=== PATIENT | female | born 1955 | race Caucasian/White ===

== ENCOUNTER 2017-11-09 14:15 | Inpatient (IN) | payer MEDICARE, BC ==
[2017-11-09] MEDS ORDERED: Lidocaine 1% w/Epinephrine 1:100K 20 ML VIAL ONE (14:28)
[2017-11-09] MEDS ORDERED: Lidocaine 1% PF 5 ML VIAL ONE (14:38)
--- NOTE | 2017-11-09 16:06 | RAD ---
TWO VIEWS LEFT WRIST 11/09/17 HISTORY: Post reduction and splinting left wrist. COMPARISON: Views left forearm on 11/09/17. FINDINGS: The previously seen comminuted fracture involving the distal left radial metaphysis is again seen wi th apex volar angulation. Degree of angulation is stable from the prior study. Comminuted fracture in volving the distal ulna is also again seen. There is prominent subcutaneous soft tissue swelling at t he dorsal aspect of the wrist and distal forearm. Splint material now overlies the wrist. IMPRESSION: 1. Stable alignment of the comminuted fractures involving the distal left radius and ulna includ ing stable apex volar angulation. 2. Subcutaneous soft tissue swelling. POS: [facility]
[2017-11-09] MEDS ORDERED: diphenhydrAMINE 50 MG/ML VIAL ONE (17:09)
[2017-11-09] MEDS ORDERED: Nicotine 14 MG PATCH TOP SCH (17:15)
[2017-11-09] MEDS ORDERED: Milk Of Magnesia 30 ML UDCUP PO PRN (17:22)
[2017-11-09] MEDS ORDERED: traMADol HCl 50 MG TAB PO PRN (17:22)
[2017-11-09] MEDS ORDERED: Ondansetron HCl/PF 4 MG/2 ML Vial IV PRN (17:22)
[2017-11-09] MEDS ORDERED: Fentanyl 100 MCG/2 ML VIAL SLOW IVP PRN (17:22)
[2017-11-09] MEDS ORDERED: Communication Order-Pharmacy FS SCH (17:30)
[2017-11-09] MEDS ORDERED: TETANUS AND DIPHTHERIA TOX/PF 0.5 ML DISP.SYRIN IM SCH (17:30)
[2017-11-09] MEDS ORDERED: Ketorolac Tromethamine 30 MG/ML VIAL ONE (17:31)
[2017-11-09] MEDS: Ketorolac Tromethamine 30 MG/ML VIAL IVP SCH ×2 (18:41→23:56)
[2017-11-09 18:42] VITALS: BMI 20.9
[2017-11-09] MEDS: HYDROcodone/Acetaminophen 10/325 mg Tablet PO PRN (20:57)
[2017-11-09] MEDS: Aspirin 81 mg Enteric Coated Tablet PO SCH (20:58)
--- NOTE | 2017-11-09 22:15 | HP ---
DATE OF ADMISSION: 11/09/2017 CHIEF COMPLAINT: Left wrist pain. HISTORY OF PRESENT ILLNESS: Ms. Hickman is a 62-year-old female who has fallen. She fractured her le ft distal radius and ulna. She was transferred over for treatment of this. An attempt at reduction has been made; however, there has been minimal improvement in alignment. She still has a displaced f racture. She has been splinted. She has been given pain control as well as a hematoma block. Ortho pedics was consulted regarding the severity of the injury. The patient is comfortable currently. No other injuries. No previous fractures. PAST MEDICAL HISTORY: Coronary artery disease with history of cardiovascular stent. She denies othe r active or chronic medical problems. PAST SURGICAL HISTORY: Cardiovascular stent, otherwise negative. ALLERGIES: SULFA, TRIMETHOPRIM. SOCIAL HISTORY: The patient smokes cigarettes. She denies drug or alcohol use. REVIEW OF SYSTEMS: Positive for left wrist pain, otherwise negative for 10-point review of systems. IMAGES: X-rays of the left distal radius demonstrate a comminuted and displaced distal radius and ul na fracture with significant extension and overlap of the fragments. PHYSICAL EXAMINATION: VITAL SIGNS: Stable. She is normotensive, blood pressure is 182/79, pulse is 68, respiratory is 20, temperature is 97.8. GENERAL: She is sitting upright, in no apparent distress. RESPIRATORY: Breathing comfortably. HEENT: Normocephalic, atraumatic. LUNGS: Breathing comfortably. MUSCULOSKELETAL: At this point, the patient is in a splint. She has intact sensation in the median, ulnar, and radial nerve distribution. Palpable peripheral pulses. She is able flex and extend the digits. Two-second capillary refill. Lower extremities are atraumatic. IMPRESSION: Displaced left distal radius and ulna fracture, acute. PLAN: At this point, the patient will need to be admitted to the hospital. We will plan for open re duction and internal fixation of her distal radius fracture. She does have osteoporosis and comminut ed fracture, so risks are possible, which would include malunion, hardware failure, infection, wound problem and others. She will need preoperative medical clearance. She does have a history of cardia c stent, but no active coronary symptoms. She will have adequate pain control. She will have DVT pr ophylaxis and antibiotic prophylaxis.
--- NOTE | 2017-11-10 00:38 | PDOC.PN ---
- Subjective Encounter Start Date: 11/09/17 Encounter Start Time: 10:30 Subjective: pt up in bed no complains -: pt states she had her stent placed in 2014. 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 [place] -: pt saw her railcar carpenter about 3 months ago - Objective Vital Signs & Weight: Vital Signs (12 hours) Temp Pulse Resp BP BP Pulse Ox 11/10/17 00:24 98 F 66 16 139/76 94 L 11/09/17 20:35 97 11/09/17 20:20 98.1 F 69 18 11/09/17 17:45 98.1 F 69 18 131/67 97 Weight Weight 126 lb Phys Exam - Physical Examination HEENT: PERRLA, moist MMs, sclera anicteric, TM's clear, oral pharynx no lesions , 2+ tonsils Neck: no nodes, no JVD, supple, full ROM Respiratory: no wheezing, no rales, no rhonchi, wheezing present, clear to auscultation bilateral Cardiovascular: RRR, no significant murmur, no rub, gallop, irregular Gastrointestinal: soft, non-tender, no distention, positive bowel sounds right hand is wrapped in jeffrey Neurological: non-focal, normal sensation, moves all 4 limbs Dx/Plan (1) CAD (coronary artery disease) Code(s): I25.10 - ATHSCL HEART DISEASE OF [place] CORONARY ARTERY W/O ANG PCTRS Status: Acute (2) Smoking Code(s): F17.200 - NICOTINE DEPENDENCE, UNSPECIFIED, UNCOMPLICATED Status: Acute (3) Fall Code(s): W19.XXXA - UNSPECIFIED FALL, INITIAL ENCOUNTER Status: Acute - Plan * . Pt denies any chest pain or sob. She has no orthopnea and is able to do her daily activities without any issues. she had a mechanical fall when she was doing some yard work [place]. Her stent was placed in 2014 and she is on plavix. she did not take her dose yesterday however given that stopping her plavix now will not help her risk of bleeding since it takes about 7-8 days for new platelets to form. Besides she will be on asa for dvt ppx and that should be ok since her stents were placed in 2014. She is stable to proceed with surgery. will check labs in am. will check a vit D level. Review of Systems - Review of Systems ENT: negative: Ear Pain, Ear Discharge, Nose Pain, Nose Discharge, Nose Congestion, Mouth Pain, Mouth Swelling, Throat Pain, Throat Swelling, Other Respiratory: negative: Cough, Dry, Shortness of Breath, Hemoptysis, SOB with Excertion, Pleuritic Pain, Sputum, Wheezing Cardiovascular: negative: chest pain, palpitations, orthopnea, paroxysmal nocturnal dyspnea, edema, light headedness, other Gastrointestinal: negative: Nausea, Vomiting, Abdominal Pain, Diarrhea, Constipation, Melena, Hematochezia, Other Genitourinary: negative: Dysuria, Frequency, Incontinence, Hematuria, Retention , Other Musculoskeletal: negative: Neck Pain, Shoulder Pain, Arm Pain, Back Pain, Hand Pain, Leg Pain, Foot Pain, Other - Medications/Allergies Allergies/Adverse Reactions: Allergies Allergy/AdvReac Type Severity Reaction Status Date / Time sulfamethoxazole Allergy Unverified 11/09/17 17:02 [From Bactrim] trimethoprim [From Bactrim] Allergy Unverified 11/09/17 17:02 Medications: Current Medications Hydrocodone Bitart/Acetaminophen (Milo 10/325) 1 tab PO Q4H PRN PRN Reason: Moderate Pain (4-6) Last Admin: 11/09/17 20:57 Dose: 1 tab Aspirin (Ecotrin) 81 mg PO BID [facility] Last Admin: 11/09/17 20:58 Dose: 81 mg Cefazolin Sodium (Ancef) 2 gm SLOW IVP ONCALL-OR [facility] Stop: 11/10/17 23:59 Fentanyl (Sublimaze) 50 mcg SLOW IVP Q30M PRN PRN Reason: Severe breakthrough pain Ketorolac Tromethamine (Toradol) 15 mg IVP Q6HR [facility] Stop: 11/10/17 18:01 Last Admin: 11/09/17 23:56 Dose: 15 mg Magnesium Hydroxide (Milk Of Magnesium) 30 ml PO DAILY PRN PRN Reason: Constipation Miscellaneous Information (Communication Order-Pharmacy) 1 each FS ONE [facility] Stop: 12/09/17 17:31 Nicotine (Nicoderm Patch) 14 mg TOP NOW [facility] Stop: 11/10/17 17:14 Ondansetron HCl (Zofran) 4 mg IV Q6H PRN PRN Reason: Nausea Sodium Chloride (Flush - Normal Saline) 10 ml IVF PRN PRN PRN Reason: Saline Flush Tramadol HCl (Ultram) 100 mg PO Q6H PRN PRN Reason: Moderate Pain (4-6)
[2017-11-10 05:17] LABS: Anion Gap 8 mmol/L (10-20); BUN (Urea Nitrogen) 14 mg/dL (9.8-20.1); Calc. Creatinine Clearance 70 mL/min (70-130); Calcium 9.3 mg/dL (7.8-10.44); Carbon Dioxide 31 mmol/L (23-31); Chloride 105 mmol/L (98-107); Estimated GFR-MDRD 77; Glucose 104 mg/dL (80-115); Potassium 5.1 mmol/L (3.5-5.1); Sodium 139 mmol/L (136-145)
[2017-11-10] MEDS: Ketorolac Tromethamine 30 MG/ML VIAL IVP SCH ×3 (05:25→12:14)
[2017-11-10] MEDS: HYDROcodone/Acetaminophen 10/325 mg Tablet PO PRN ×2 (07:01→12:13)
[2017-11-10 07:43] LABS: Hemoglobin 12.9 g/dL (12.0-16.0); Mean Corpuscular HGB CONC 33.4 g/dL (32.0-36.0); Mean Corpuscular Hemoglobin 34.6 pg (27.0-31.0); Mean Platelet Volume 6.9 fL (7.4-10.4); Platelet Count 136 thou/uL (130-400); Red Blood Cell (RBC) Count 3.73 mill/uL (4.20-5.40)
[2017-11-10] MEDS ORDERED: Ketorolac Tromethamine 30 MG/ML VIAL ONE (08:56)
[2017-11-10] MEDS ORDERED: Fentanyl 100 MCG/2 ML VIAL ONE ×4 (08:56→11:34)
[2017-11-10] MEDS ORDERED: CEFAZOLIN/Water 2 GM/20 ML SYRINGE SLOW IVP SCH (09:00)
[2017-11-10] MEDS: Aspirin 81 mg Enteric Coated Tablet PO SCH (09:08)
[2017-11-10] MEDS ORDERED: CEFAZOLIN/Water 2 GM/20 ML SYRINGE ONE (09:13)
[2017-11-10] MEDS ORDERED: Bupivacaine PF 0.5% 30 ML VIAL ONE (10:16)
[2017-11-10] MEDS ORDERED: Ondansetron HCl/PF 4 MG/2 ML Vial IVP PRN (11:08)
[2017-11-10] MEDS ORDERED: Promethazine HCl 25 MG/ML VIAL IM PRN (11:08)
[2017-11-10] MEDS ORDERED: Promethazine HCl 25 MG/ML VIAL SLOW IVP PRN (11:08)
--- NOTE | 2017-11-10 13:45 | OP ---
DATE OF PROCEDURE: 11/10/2017 OPERATION: Left distal radius fracture, open reduction internal fixation. PREOPERATIVE DIAGNOSIS: Displaced left distal radius fracture. POSTOPERATIVE DIAGNOSIS: Displaced left distal radius fracture. COMPLICATIONS: None. ESTIMATED BLOOD LOSS: Minimal. SURGEON: El Patel M.D. OFFICE CLERK ROUTINE: Steve Galvez PA-C. IMPLANTS: Synthes volar distal radius plate 4-hole. INDICATIONS: Ms. Hickman is a 62-year-old female who fell. She fractured her distal radius and ulna. She was indicated for open reduction and internal fixation of the distal radius and ulna fracture t o restore anatomic alignment and promote healing. Risks have been reviewed. She has elected to proc eed with the operation. DESCRIPTION OF PROCEDURE: Ms. Hickman was identified in the preoperative holding area. Her correct e xtremity was marked. She was carried to the operating room. She was positioned supine. General ane sthesia was induced. A multidisciplinary timeout was performed. The left upper extremity was preppe d and draped in sterile fashion. We began the procedure with a volar FCR approach to the distal radius. We made a 6 cm incision, diss ected down to the FCR tendon sheath, which was opened. The tendon sheath was retracted. We then ashley ared the pronator quadratus from the distal radius. At this point, the fracture was identified. The re was comminution and significant displacement. We then used a [place] elevator to manipulate the fra gments back into position. We placed multiple K-wires holding our position. We then placed a 4-hole Synthes variable angle distal radius plate along the volar cortex. Multiple screws were placed dist ally and proximally. We took x-ray images confirming hardware placement and alignment. We filled al l screw holes. Again, we took x-rays confirming that there were no hardware complications. At this point, we thoroughly irrigated with copious lavage. We then closed the wound in layers using 0 Vicry l suture, 2-0 Vicryl suture, and nylon. A sterile dressing and a splint was placed. The patient was taken to the recovery room in good condition without complication.
[2017-11-10 14:20] VITALS: TEMP 98.2
[2017-11-10 14:22] VITALS: BP 138/74
--- NOTE | 2017-11-10 15:47 | RAD ---
LEFT WRIST INTRAOPERATIVE FLUOROSCOPY THREE VIEWS: 11/10/17 HISTORY: Wrist fracture. FINDINGS/IMPRESSION: Intraoperative fluoroscopy is provided for internal fixation as performed by Dr. Patel. Spot fluo roscopic images show volar compression plate and multiple screws to transfix the distal radial fractu re in anatomic alignment. Fluoro time = 11 seconds. POS: [facility]
[2017-11-10] MEDS ORDERED: Lidocaine 1% PF 5 ML VIAL ONE (18:14)
[2017-11-10] MEDS ORDERED: PROPOFOL 200 MG/20 ML VIAL ONE (18:14)
[2017-11-10] MEDS ORDERED: Ondansetron HCl/PF 4 MG/2 ML Vial ONE (18:14)
[2017-11-10] MEDS ORDERED: Dexamethasone 20 MG/5 ML VIAL ONE (18:14)
== END 2017-11-10 14:00 | disposition home or self-care (01) | DRG 512 ==
LOC: ERS 14:15 → SURG A 16:37
PROVIDERS: ADMIT Orthopaedic Surgery; ATTEND Orthopaedic Surgery
PROC: 0PSJXZZ Reposition Left Radius, External Approach (ICD-10-PCS; 2017-11-09)
PROC: 0PSJ04Z Reposition Left Radius with Internal Fixation Device, Open Approach (ICD-10-PCS; principal; 2017-11-10)
DX: S52.502A Unspecified fracture of the lower end of left radius, initial encounter for closed fracture (principal); S52.602A Unspecified fracture of lower end of left ulna, initial encounter for closed fracture; I25.10 Atherosclerotic heart disease of native coronary artery without angina pectoris; M81.0 Age-related osteoporosis without current pathological fracture; F17.200 Nicotine dependence, unspecified, uncomplicated; Z95.5 Presence of coronary angioplasty implant and graft; W19.XXXA Unspecified fall, initial encounter; Y92.096 Garden or yard of other non-institutional residence as the place of occurrence of the external cause
CPT/HCPCS: 25605; 36415; 76001; 80048; 82306; 85027; 93005; 96374; 96375; C1713; J1100; J1200; J1885; J2001; J2270; J2405; J2704; J3010; S0020

== ENCOUNTER 2020-10-14 07:19 | Outpatient (CLI) | payer MEDICARE, BC | END 2020-10-14 07:20 | disposition home or self-care (01) | LOC: CTENTCT 07:19 | PROVIDERS: ATTEND Otolaryngology Plastic Surgery within the Head & Neck | DX: J32.8 Other chronic sinusitis (principal) | CPT/HCPCS: 70486 ==